=== PATIENT | female | born 2000 | race Caucasian/White ===

== ENCOUNTER 2020-02-01 01:57 | Emergency (ER) | payer OTHER, SELFPAY ==
[2020-02-01 01:59] VITALS: BP 142/88; PULSE 121; RESP 16; TEMP 37.6; O2SAT 98; BMI 24.7
--- NOTE | 2020-02-01 02:18 | XR_ITS ---
PROCEDURE: XR ANKLE LT MIN 3V CLINICAL INDICATION: pt tripped and fell. LT ankle pain COMPARISON: No exams were available for comparison FINDINGS: No fracture, dislocation, lytic change, or blastic change evident. No significant degenerative change IMPRESSION: No acute findings. Dictated by: Kiko Martínez MD 02/01/2020 05:35 Electronically signed by Kiko Martínez MD in [place] 02/01/2020 05:35
--- NOTE | 2020-02-01 03:17 | HMH.EDLOEX ---
ED Disposition Clinical Impression: Ankle sprain and strain Disposition: Home, Self-Care Condition on Discharge: Fair Instructions: Sprain Additional Instructions: X rays were reviewed and show no acute findings. You could have a sprain not visible in X rays Plan is to send patient home after providing an marie bandage. Advising rest ice marie bandage and elevation. Please follow up as needed Prescriptions: Diclofenac Sodium [Voltaren 100gm Topical Gel] 1 applicatio TP Q4-6H PRN #100 gm PRN Reason: Moderate Pain Transmission Status: Pending to [id number] Referrals: Suki Morrell MD [Primary Care Provider] - Forms: Work/School Release Time of Disposition: 03:24 - Critical Care Critical Care Time: No Attestation: On 02/01/20, the high probability of a clinically significant, sudden or life threatening deterioration of the following system(s) required my full and direct attention, intervention and personal management. The time I documented below is in addition to time spent performing reported procedures but includes the following listed in this critical care notation. Medical Decision Making - Medical Records Medical records reviewed: Yes: I reviewed the patient's medical records. MR Comment: pt stated she tripped over her dog and fell down her stairs and twisted her left ankle. pt rates her pain at a 3 at this time. pt denies any other pain or discomfort at this time. X rays were reviewed and show no acute findings. Plan is to send patient home after providing an marie bandage. Advising rest ice marie bandage and elevation. Will keep her off work today and tomorrow - Surinder Inquiry Pt receiving controlled substance: No Vital Signs: 02/01/20 01:59 Temperature 99.6 F Temperature Source Oral Pulse Rate [Left Radial] 121 H Respiratory Rate 16 Blood Pressure [Right Arm] 142/88 H Blood Pressure Mean [Right Arm] 106 Blood Pressure Source [Right Arm] Automatic Cuff Blood Pressure Position [Right Arm] Sitting 02 Sat by Pulse Oximetry 98 Oxygen Delivery Method Room Air Orders (Tests/Meds): ORDERS Category Date Time Status Ankle XR - Left minimum 3 Views [XR ankle LT min 3V] Exams 02/01/20 02:18 Ordered Stat Lower Extremity Injury HPI - General Chief Complaint: Extremity Injury, Lower Stated Complaint: AO 02/01/20 00:30 left ankle injury Time Seen by Provider: 02/01/20 03:07 Mode of Arrival: Ambulatory Source of Information: Patient Limitations: No Limitations Description of Symptoms (Recalled from ER Triage Doc. by RN): pt stated she tripped over her dog and fell down her stairs and twisted her left ankle. pt rates her pain at a 3 at this time. pt denies any other pain or discomfort at this time. - History of Present Illness HPI Narrative: pt stated she tripped over her dog and fell down her stairs and twisted her left ankle. pt rates her pain at a 3 at this time. pt denies any other pain or discomfort at this time MD complaint: ankle injury Onset (ago): hour(s) Injury: Left: ankle Type of Injury: unknown Place: home Severity: mild Severity scale (1-10): 3 Exacerbating factors: movement Associated symptoms: swelling Other symptoms: none Treatments prior to arrival: cold therapy - Related Data Previous Rx's Medication Instructions Recorded levonorgestrel-ethinyl estradiol 1 tab PO DAILY #28 tab 09/21/19 0.1 mg-20 mcg tablet Diclofenac Sodium [Voltaren 100gm 1 applicatio TP Q4-6H PRN #100 gm 02/01/20 Topical Gel] Allergies Allergy/AdvReac Type Severity Reaction Status Date / Time venom-honey bee Allergy Intermediate Verified 12/22/19 10:14 [BEE VENOM (HONEY BEE)] venom-wasp [WASP VENOM] Allergy Intermediate Verified 12/22/19 10:14 [facility] History - Hepatitis A Screen Drug use history?: No High risk sexual behaviors?: No History of sexually transmitted infection?: No Currently employed?: No Childcare worker?: No Do you have indoor plumbing?: Ye
--- NOTE | 2020-02-01 03:18 | PC.NURSE ---
left ankle CAT wrapped, pt educated on vascular assessment and adjusting CAT as needed for edema.
[2020-02-01 03:27] VITALS: BP 137/76; PULSE 64; RESP 16; TEMP 37.3; O2SAT 96
[2020-02-01 03:34] VITALS: BP 126/72; PULSE 66; RESP 16; TEMP 37.3; O2SAT 99
== END 2020-02-01 03:31 | disposition home or self-care (01) ==
PROVIDERS: Emergency Provider Emergency Medicine; PCP Family Medicine
DX: S93.402A Sprain of unspecified ligament of left ankle, initial encounter (principal); W10.9XXA Fall (on) (from) unspecified stairs and steps, initial encounter; Y92.019 Unspecified place in single-family (private) house as the place of occurrence of the external cause
CPT/HCPCS: 73610; 99282

== ENCOUNTER → 2022-04-15 10:44 | Outpatient (CLI) | payer OTHER, SELFPAY ==
[2022-04-15 13:01] LABS: HCG,Quantitative 13 mIU/ml (0-5.42)
== END ==
PROVIDERS: PCP Family Medicine; Visit Provider Nurse Practitioner Obstetrics & Gynecology
DX: N92.6 Irregular menstruation, unspecified (principal)
CPT/HCPCS: 36415; 84702

== ENCOUNTER → 2022-04-24 10:21 | Outpatient (CLI) | payer OTHER, SELFPAY ==
[2022-04-24 12:07] LABS: HCG,Quantitative 406 mIU/ml (0-5.42)
== END ==
PROVIDERS: PCP Family Medicine; Visit Provider Nurse Practitioner Obstetrics & Gynecology
DX: N92.6 Irregular menstruation, unspecified (principal)
CPT/HCPCS: 36415; 84702

== ENCOUNTER → 2022-04-28 07:30 | Outpatient (CLI) | payer OTHER, SELFPAY ==
[2022-04-28 11:57] LABS: HCG,Quantitative 1450 mIU/ml (0-5.42)
== END ==
PROVIDERS: PCP Family Medicine; Visit Provider Nurse Practitioner Obstetrics & Gynecology
DX: Z34.90 Encounter for supervision of normal pregnancy, unspecified, unspecified trimester (principal)
CPT/HCPCS: 36415; 84702

== ENCOUNTER → 2022-05-13 14:29 | Outpatient (CLI) | payer OTHER, SELFPAY ==
[2022-05-13 15:10] LABS: Basophils % 0.3 % (0.1-2.0); Eosinophils % 0.3 % (0.1-12.0); Hemoglobin 13.6 g/dL (12.2-16.2); Lymphocytes % 9.4 % (10-50); Mean Corpuscular HGB Conc 33.1 g/dL (31.8-35.4); Mean Corpuscular Hemoglobin 30.8 pg (27.0-31.2); Mean Corpuscular Volume 93.3 fl (81-99); Mean Platelet Volume 7.2 fl (7.4-10.4); Monocytes # 0.4 K/mm3 (0.1-1.0); Monocytes % 3.4 % (1.7-9.3); Neutrophils # 9.6 K/mm3 (1.8-7.8); Neutrophils % 86.6 % (37.0-80.0); Platelet Count 339 K/mm3 (142-424); Red Blood Count 4.39 M/mm3 (4.20-5.40); Red Cell Distribution Width 13.4 % (11.5-17.5)
[2022-05-13 15:13] LABS: MANUAL DIFFERENTIAL MANUAL DIFFERENTIAL (MANUAL DIFF)
[2022-05-13 15:53] LABS: Lymphocytes % 9 % (10-50); Monocytes % 3 % (2-9); Neutrophils % 88 % (42-76); Platelet Estimate Normal; RBC Morphology Normal; Total Cells Counted 100
[2022-05-13 15:55] LABS: HCG Qualitative, Serum Positive (Negative)
[2022-05-14 11:39] LABS: HCG,Quantitative 16901 mIU/ml (0-5.42)
[2022-05-15 09:36] LABS: HIV Screen 4th Generation wRfx Non Reactive (Non Reactive); Hepatitis B Surface Antigen Negative (Negative); Hepatitis C Antibody <0.1 s/co ratio (0.0-0.9); Rubella Antibodies, IgG 3.55 index (Immune >0.99)
[2022-05-15 11:57] LABS: Rapid Plasma Reagin Ab Titer Non Reactive (NonRea<1:1)
== END ==
PROVIDERS: PCP Family Medicine; Visit Provider Nurse Practitioner Obstetrics & Gynecology
DX: Z34.90 Encounter for supervision of normal pregnancy, unspecified, unspecified trimester (principal)
CPT/HCPCS: 36415; 84702; 84703; 85007; 85025; 86592; 86703; 86762; 86850; 87340; 87380; G0432

== ENCOUNTER → 2022-05-16 07:32 | Outpatient (CLI) | payer OTHER, SELFPAY ==
[2022-05-16 09:19] LABS: HCG,Quantitative 16010 mIU/ml (0-5.42)
== END ==
PROVIDERS: PCP Family Medicine; Visit Provider Nurse Practitioner Obstetrics & Gynecology
DX: Z34.90 Encounter for supervision of normal pregnancy, unspecified, unspecified trimester (principal)
CPT/HCPCS: 36415; 84702

== ENCOUNTER → 2022-05-26 14:27 | Outpatient (CLI) | payer OTHER, SELFPAY ==
[2022-05-26 15:05] LABS: Basophils # 0.1 K/mm3 (0-0.2); Basophils % 0.7 % (0.1-2.0); Eosinophils % 0.4 % (0.1-12.0); Hematocrit 40.2 % (37.0-47.0); Hemoglobin 12.8 g/dL (12.2-16.2); Lymphocytes # 2.5 K/mm3 (0.7-4.5); Lymphocytes % 32.5 % (10-50); Mean Corpuscular HGB Conc 31.8 g/dL (31.8-35.4); Mean Corpuscular Volume 94.3 fl (81-99); Mean Platelet Volume 7.3 fl (7.4-10.4); Monocytes # 0.4 K/mm3 (0.1-1.0); Monocytes % 5.1 % (1.7-9.3); Neutrophils # 4.7 K/mm3 (1.8-7.8); Neutrophils % 61.4 % (37.0-80.0); Platelet Count 379 K/mm3 (142-424); Red Blood Count 4.26 M/mm3 (4.20-5.40); Red Cell Distribution Width 13.2 % (11.5-17.5); White Blood Count 7.6 K/mm3 (4.8-10.8)
[2022-05-26 15:36] LABS: Chloride 104 mmol/L (98-107); Potassium 3.7 mmoL/L (3.5-5.1); Sodium 139 mmol/L (136-145)
[2022-05-26 15:39] LABS: Alanine Aminotransferase 17 U/L (12-78); Albumin Level 4.2 g/dl (3.5-5.0); Albumin/Globulin Ratio 1.6 (1.1-1.8); Alkaline Phosphatase 66 U/L (38-126); Anion Gap 14.7 mEq/L (5-15); Aspartate Amino Transferase 22 U/L (14-36); Bilirubin,Total 0.2 mg/dl (0.2-1.3); Blood Urea Nitrogen 9 mg/dl (7-17); Carbon Dioxide 24 mmol/L (22.0-30.0); Estimated Glomerular Filt Rate 125 ml/min (>60); GFR (African American) 151 ML/MIN (>60); Globulin 2.6 g/dL (1.3-3.2); Total Protein,Serum 6.8 g/dl (6.3-8.2)
[2022-05-26 15:40] LABS: Calcium 9.5 mg/dl (8.4-10.2); Glucose 91 mg/dl (74-100)
== END ==
PROVIDERS: PCP Family Medicine; Visit Provider Nurse Practitioner Obstetrics & Gynecology
DX: O03.4 Incomplete spontaneous abortion without complication (principal)
CPT/HCPCS: 36415; 80053; 85025

== ENCOUNTER 2022-05-27 11:54 | Day surgery (SDC) | payer OTHER, SELFPAY ==
[2022-05-27 12:06] VITALS: BP 144/79; PULSE 94; RESP 18; TEMP 36.8; O2SAT 100; BMI 30.4
--- NOTE | 2022-05-27 12:53 | EXP.ANES.CKL ---
PFSH PFS Medical History (Updated 05/27/22 @ 12:04 by Ada Hart RN) No significant past medical history Surgical History (Updated 05/27/22 @ 12:04 by Ada Hart RN) No significant past surgical history Family History (Updated 05/27/22 @ 12:04 by Ada Hart RN) Other Family history of cancer Family history of diabetes mellitus type II Family history of hypertension Family history of myocardial infarction Family history of stroke Social History (Updated 05/27/22 @ 12:05 by Ada Hart RN) Smoking Status: Never smoker alcohol intake: never substance use type: denies use current occupational status: employed Travel in the last 8 weeks: None household members: family housing: house lives independently: Yes marital status: do you feel safe at home: Yes victim of physical abuse: No victim of emotional abuse: No victim of sexual abuse: No would you like helpful sources: No [facility] Anesthesia Checklist Patient Identification Patient Identification: Arm Band Structural Data Admitted From: Home Planned Operative Procedure/s: D&C with Mariaa Suction Consent for Planned Operative Procedure(s) Verified: Yes Verified Documents: Surgical Consent and History and Physical NPO Status Verified Time NPO: 00:00 Additional verifications Anesthesia Reactions: No Hx Blood Transfusions: No Blood Transfusion Reaction: No Airway Assessment C-Spine Mobility Assessed: Yes TMJ Mobility Assessed: Yes Dentition: Good Dentition Neurological Assessment Level of Consciousness: Awake and Alert Anesthesia Plan Anesthesia Risk discussed: Yes Anesthesia Plan: Verified ASA Class: II Anesthesia Type: General
--- NOTE | 2022-05-27 14:58 | P.OP_ITS ---
Date of procedure: 05/27/22 Pre-op Diagnosis:: Missed Post-op Diagnosis:: Missed Procedure performed:: Dilation and evacuation with Avery suction Surgeon:: Carl Braswell MD CHUCKING AND BORING MACHINE OPERATOR:: Nabil Washburn Anesthesia: MAC Estimated blood loss (mL): 150 Clinical Note:: She is a 22-year-old 1 para 0 at 10 weeks gestational age. She was seen a week or so ago with a suspected miscarriage. There was no heart rate activity. A repeat ultrasound showed that there was no heart rate activity. As result of that she was offered dilation and evacuation. The risk and benefits of surgery were discussed with the patient. Operative findings:: She has an anteverted bulky uterus. There was copious tissue within the uterine cavity. Operative note:: She was taken the operating room where esthesia was found be adequate. She was prepped a partial vaginal lithotomy position. Weighted speculum was placed in the vagina and the anterior lip of the cervix was grasped with a tenaculum. I then used Hunter dilators to dilate the cervix up to approximately 10 mm. Then using a 10 mm curved Dave suction curette I evacuated the uterine contents this was followed by gentle curettage. During the dilation of the cervix the tenaculum tore off the cervix and at the end of the procedure I placed a single 3-0 Vicryl Rapide suture on the cervix. She tolerated procedure well and was taken the recovery room in excellent condition. All sponge, instrument and needle counts counts were correct. The estimated blood loss was approximately 150 cc. Condition: stable Disposition: PACU Specimens:: Retained products of conception Complications:: None
[2022-05-27 15:00] VITALS: BP 142/82; PULSE 76; RESP 17; TEMP 36.4; O2SAT 98
[2022-05-27 15:10] VITALS: BP 139/97; PULSE 79; RESP 16; O2SAT 98
[2022-05-27 15:20] VITALS: BP 127/92; PULSE 84; RESP 17; O2SAT 98
[2022-05-27 15:30] VITALS: BP 119/75; PULSE 72; RESP 18; O2SAT 99
--- NOTE | 2022-05-28 08:02 | P.PNANES_ITS ---
[facility] Anesthesia Record Part II Anesthesia Record Part II Discharge Time: 15:20 Destination: Surgical Day Care (OP Surgery) PACU nurse assessment reviewed?: Yes Patient Condition:: Good Anesthesia Complications:: None Swallowing reflex intact?: Yes Cyanosis?: No Blood Pressure: 127/92 Pulse Rate: 84 Temperature: 97 F Mental Status: Alert & Oriented Pain level:: 5 Nausea and/or vomitting:: None Intake, IV Amount: 0
[2022-05-28 08:03] VITALS: BP 127/92; PULSE 84; TEMP 36.1
== END 2022-05-27 15:35 | disposition home or self-care (01) ==
PROVIDERS: PCP Family Medicine; Visit Provider Nurse Practitioner Obstetrics & Gynecology
PROC: (CPT 59820; principal; 2022-05-27 13:30)
DX: O03.4 Incomplete spontaneous abortion without complication (principal); Z79.899 Other long term (current) drug therapy
CPT/HCPCS: 59820; J2405

== ENCOUNTER → 2022-07-29 07:22 | Outpatient (CLI) | payer OTHER, SELFPAY ==
[2022-07-29 10:35] LABS: HCG,Quantitative 63 mIU/ml (0-5.42)
[2022-07-30 10:12] LABS: Progesterone 17.9 ng/mL (.)
== END ==
PROVIDERS: PCP Family Medicine; Visit Provider Nurse Practitioner Obstetrics & Gynecology
DX: N92.6 Irregular menstruation, unspecified (principal); Z32.00 Encounter for pregnancy test, result unknown
CPT/HCPCS: 36415; 84144; 84702

== ENCOUNTER → 2022-08-05 07:50 | Outpatient (CLI) | payer OTHER, SELFPAY ==
[2022-08-05 09:07] LABS: HCG,Quantitative 1190 mIU/ml (0-5.42)
== END ==
PROVIDERS: PCP Family Medicine; Visit Provider Nurse Practitioner Obstetrics & Gynecology
DX: Z34.90 Encounter for supervision of normal pregnancy, unspecified, unspecified trimester (principal); Z3A.01 Less than 8 weeks gestation of pregnancy
CPT/HCPCS: 36415; 84702

== ENCOUNTER → 2022-08-07 07:47 | Outpatient (CLI) | payer OTHER, SELFPAY ==
[2022-08-07 08:59] LABS: HCG,Quantitative 2442 mIU/ml (0-5.42)
== END ==
PROVIDERS: PCP Family Medicine; Visit Provider Nurse Practitioner Obstetrics & Gynecology
DX: Z34.90 Encounter for supervision of normal pregnancy, unspecified, unspecified trimester (principal); Z3A.01 Less than 8 weeks gestation of pregnancy
CPT/HCPCS: 36415; 84702

== ENCOUNTER → 2022-08-19 14:29 | Outpatient (CLI) | payer OTHER, SELFPAY ==
[2022-08-19 15:16] LABS: Basophils # 0.1 K/mm3 (0-0.2); Basophils % 0.8 % (0.1-2.0); Eosinophils % 0.4 % (0.1-12.0); Hematocrit 40.6 % (37.0-47.0); Hemoglobin 13.7 g/dL (12.2-16.2); Lymphocytes # 2.8 K/mm3 (0.7-4.5); Lymphocytes % 25.3 % (10-50); Mean Corpuscular HGB Conc 33.7 g/dL (31.8-35.4); Mean Corpuscular Hemoglobin 30.8 pg (27.0-31.2); Mean Corpuscular Volume 91.4 fl (81-99); Mean Platelet Volume 7.1 fl (7.4-10.4); Monocytes # 0.4 K/mm3 (0.1-1.0); Monocytes % 4.1 % (1.7-9.3); Neutrophils # 7.6 K/mm3 (1.8-7.8); Neutrophils % 69.5 % (37.0-80.0); Platelet Count 389 K/mm3 (142-424); Red Blood Count 4.44 M/mm3 (4.20-5.40); Red Cell Distribution Width 13.3 % (11.5-17.5)
[2022-08-21 12:02] LABS: HIV Screen 4th Generation wRfx Non Reactive (Non Reactive); Rubella Antibodies, IgG 2.79 index (Immune >0.99)
[2022-08-21 12:11] LABS: Rapid Plasma Reagin Ab Titer Non Reactive (NonRea<1:1)
[2022-08-23 05:30] LABS: Hepatitis B Surface Antigen Negative; Hepatitis C Antibody <0.1
== END ==
PROVIDERS: PCP Family Medicine; Visit Provider Nurse Practitioner Obstetrics & Gynecology
DX: Z34.90 Encounter for supervision of normal pregnancy, unspecified, unspecified trimester (principal)
CPT/HCPCS: 36415; 85025; 86593; 86703; 86762; 86850; 87086; 87340; 87380; G0432

== ENCOUNTER → 2022-11-19 12:43 | Outpatient (CLI) | payer OTHER, SELFPAY ==
--- NOTE | 2022-11-19 12:43 | US_ITS ---
FINAL REPORT CLINICAL HISTORY: 20 week anatomt scan please use anatomy template FINDINGS: There is a single live intrauterine gestation. Presentation is cephalic. The cervix is closed and measures 4.0. Placenta is posterior grade 1. movement is noted. The heart is difficult to evaluate due to fetus position. There are no gross anomalies. MEASUREMENTS: ULTRASOUND AGE: 19 weeks 4 days. GESTATION AGE: 20 weeks 2 days. ESTIMATED WEIGHT: 305 g GROWTH PERCENTILE: 16 % BPD: 4.4 a corresponding to 19 weeks 4 days. OFD: 5.75 corresponding to 20 weeks 0 days. HC: 16.19 cm corresponding to 19 weeks 0 days. AC: 14.55 cm corresponding to 20 weeks 0 days. FL: 3.09 cm corresponding to 19 weeks 5 days. CEREBELLUM: 1.89 cm corresponding to 19 weeks 4 days. HUMERUS: 2.98 cm corresponding to 19 weeks 6 days. HC/AC: 1.11 CI: 78% FL/BPD: 69% FL/AC: 21% IMPRESSION: Single living IUP with an ultrasound age of 19 weeks 4 days. Reviewed, Interpreted and Dictated by Nicko Srivastava MD Transcribed by Ariela Sanders Authenticated and [facility]
== END ==
PROVIDERS: PCP Family Medicine; Visit Provider Nurse Practitioner Obstetrics & Gynecology
DX: Z34.90 Encounter for supervision of normal pregnancy, unspecified, unspecified trimester (principal); Z3A.20 20 weeks gestation of pregnancy
CPT/HCPCS: 76811

== ENCOUNTER → 2023-01-01 07:25 | Outpatient (CLI) | payer OTHER, SELFPAY ==
[2023-01-01 07:44] LABS: Basophils # 0.1 K/mm3 (0-0.2); Basophils % 0.4 % (0.1-2.0); Eosinophils # 0.2 K/mm3 (0.0-0.4); Eosinophils % 1.3 % (0.1-12.0); Hematocrit 38.2 % (37.0-47.0); Hemoglobin 12.6 g/dL (12.2-16.2); Lymphocytes # 3.7 K/mm3 (0.7-4.5); Mean Corpuscular HGB Conc 32.9 g/dL (31.8-35.4); Mean Corpuscular Hemoglobin 31.5 pg (27.0-31.2); Mean Corpuscular Volume 95.9 fl (81-99); Mean Platelet Volume 7.5 fl (7.4-10.4); Monocytes # 0.5 K/mm3 (0.1-1.0); Monocytes % 3.6 % (1.7-9.3); Neutrophils # 10.3 K/mm3 (1.8-7.8); Neutrophils % 69.7 % (37.0-80.0); Platelet Count 281 K/mm3 (142-424); Red Blood Count 3.98 M/mm3 (4.20-5.40); Red Cell Distribution Width 14.4 % (11.5-17.5); White Blood Count 14.7 K/mm3 (4.8-10.8)
[2023-01-01 08:25] LABS: Glucose,Fasting 70 mg/dl (74-100)
[2023-01-01 10:15] LABS: Glucose 1 Hour 104 mg/dL (74-100)
== END ==
PROVIDERS: PCP Family Medicine; Visit Provider Nurse Practitioner Obstetrics & Gynecology
DX: Z34.92 Encounter for supervision of normal pregnancy, unspecified, second trimester (principal)
CPT/HCPCS: 36415; 82951; 85025

== ENCOUNTER → 2023-03-11 16:54 | Outpatient (CLI) | payer OTHER, SELFPAY | PROVIDERS: Visit Provider Nurse Practitioner Obstetrics & Gynecology | DX: Z34.93 Encounter for supervision of normal pregnancy, unspecified, third trimester (principal); Z3A.36 36 weeks gestation of pregnancy | CPT/HCPCS: 86403 ==

== ENCOUNTER → 2023-03-18 10:15 | Outpatient (CLI) | payer OTHER, SELFPAY ==
--- NOTE | 2023-03-18 10:15 | US_ITS ---
PROCEDURE: US OB BIOPHYSICAL PROFILE CLINICAL INDICATION: sga/ growth/ position COMPARISON: Anatomy scan. November 19, 2022. FINDINGS: Transabdominal sonographic images of the uterus were obtained. From her established due date she is 37weeks 2days. The following parameters are obtained: Viable fetus in the cephalic presentation with a posterior placenta grade 2. Average ultrasound age is 35weeks 3days. Estimated due date by ultrasound is 04/19/2023. Estimated weight is 5lb 14.94oz. Cervix measures 2.7 cm. 16 percentile heart rate: 138bpm bpm. BPD: 35 weeks 1 day HC: 35 weeks 5 days AC: 36 weeks 2 days FL: 34 weeks 1 day HC/AC: 0.98 Cephalic index: FL/BPD: 0.76 FL/AC: 0.2 Amniotic fluid index: 15.74cm Qualitative AFV: 2 breathing movements: 2 Gross body movements: 2 Tone: 2 Biophysical profile score: 8 No obvious anomalies evident.Kidneys, stomach, bladder, three-vessel cord appear normal. IMPRESSION: 1. Fetus in the cephalic presentation with a posterior placenta grade 2. 2. The fluid is within normal limits with an amniotic fluid index of 15.7 cm. 3. Fetus is active and there is good breathing movement. Biophysical profile 8/8. 4. There has been good interval growth with the fetus currently 16 percentile. Abdominal circumference 1 week behind. Dictated by: Carl Braswell MD 03/18/2023 13:33 Carl Braswell MD in [place] 03/18/2023 13:33
== END ==
PROVIDERS: Visit Provider Nurse Practitioner Obstetrics & Gynecology
DX: O36.5930 Maternal care for other known or suspected poor fetal growth, third trimester, not applicable or unspecified (principal); Z3A.37 37 weeks gestation of pregnancy
CPT/HCPCS: 76816; 76819

== ENCOUNTER 2023-04-07 04:53 | Inpatient (IN) | payer OTHER, SELFPAY ==
[2023-04-07 05:05] VITALS: BMI 34.7
[2023-04-07 05:46] LABS: Microscopic, Urine URINE MICROSCOPIC (MICROSCOPIC)
[2023-04-07 05:49] LABS: Bilirubin,Urine Negative (Negative); Blood, Urine Negative (Negative); Color,Urine YELLOW (Yellow); Glucose,Urine (UA) Negative (Negative); Ketones,Urine 1+ (Negative); Leukocyte Esterase,Urine 2+ (Negative); Nitrate,Urine Negative (Negative); Protein,Urine Negative (Negative); Urobilinogen,Urine 0.2 EU/dl (0.2)
[2023-04-07 05:49] LABS: Basophils # 0.1 K/mm3 (0-0.2); Basophils % 0.6 % (0.1-2.0); Eosinophils # 0.1 K/mm3 (0.0-0.4); Eosinophils % 0.7 % (0.1-12.0); Hematocrit 48.1 % (37.0-47.0); Hemoglobin 15.2 g/dL (12.2-16.2); Lymphocytes # 3.5 K/mm3 (0.7-4.5); Lymphocytes % 29.6 % (10-50); Mean Corpuscular HGB Conc 31.6 g/dL (31.8-35.4); Mean Corpuscular Hemoglobin 31.3 pg (27.0-31.2); Mean Corpuscular Volume 98.8 fl (81-99); Mean Platelet Volume 8.5 fl (7.4-10.4); Monocytes # 0.5 K/mm3 (0.1-1.0); Monocytes % 4.3 % (1.7-9.3); Neutrophils # 7.6 K/mm3 (1.8-7.8); Neutrophils % 64.7 % (37.0-80.0); Platelet Count 284 K/mm3 (142-424); Red Blood Count 4.87 M/mm3 (4.20-5.40); White Blood Count 11.7 K/mm3 (4.8-10.8)
[2023-04-07 05:57] LABS: Appearance,Urine Slightly Cloudy (Clear)
[2023-04-07 06:34] LABS: Amorphous Sediment,Urine 1+ /lpf; Squamous Epithelial Cell,Urine TNTC #/hpf (0-5); WBC,Urine 20-50 #/hpf (0-3)
[2023-04-07 06:38] VITALS: BMI 34.7
[2023-04-07 08:04] LABS: Benzodiazepines Screen,Urine Negative ng/ml (<200)
[2023-04-07 08:05] LABS: Amphetamine/Metha Screen,Urine Negative ng/ml (<1000)
[2023-04-07 08:06] LABS: Barbiturates Screen,Urine Negative ng/ml (<200); Methadone Screen,Urine Negative ng/ml (<300)
[2023-04-07 08:07] LABS: Cannabinoid Screen,Urine Negative ng/ml (<50); Cocaine Screen,Urine Negative ng/ml (<300)
[2023-04-07 08:08] LABS: Opiate Screen,Urine Negative ng/ml (<300)
[2023-04-07 08:09] LABS: Phencyclidine Screen,Urine Negative ng/ml (<25)
--- NOTE | 2023-04-07 09:15 | EXP.HP ---
History of Present Illness *Admission Date: 04/07/23 *Reason for visit:: induction *History of present illness: Archana Ortega is a 22yo at 40 weeks and 1 day gestation presenting this morning for an induction. MARLA of 04/06/2023 is based on last menstrual period and confirmed by pressurized ultrasound. She received care with Dr. Braswell and it was uncomplicated. There was a cardiac arrhythmia at 31weeks which was evaluated at [facility] and was benign. labs reviewed: A+, antibody negative, RPR NR, hepatitis B negative, hepatitis C negative, HIV negative, rubella immune Pap smear: NILM, no transformation zone visualized. 1 hour GTT: 104 GBS negative UDS: Negative Ultrasound on 03/18/23 for size growth and position at 37 weeks and 2 days gestation: Cephalic, posterior grade 2 placenta, EFW 5 pounds 14 ounces, 16 percentile, abdominal circumference is 1 week behind, LANA: 15 cm, BPP: 8 out of 8 PFSH PFSH Disclaimer: The information contained in this section may have been updated after the patient was seen, as this information can be updated by other users. Medical History Nausea/vomiting in Surgical History H/O dilation and curettage Family History Other Family history of cancer Family history of diabetes mellitus type II Family history of hypertension Family history of myocardial infarction Family history of stroke Social History Smoking Status: Never smoker alcohol intake: never substance use type: denies use current occupational status: employed Travel in the last 8 weeks: None household members: family housing: house lives independently: Yes marital status: do you feel safe at home: Yes victim of physical abuse: No victim of emotional abuse: No victim of sexual abuse: No would you like helpful sources: No Meds Home Medications and Allergies Home Medications Medication Instructions Recorded Confirmed Type vits 75-iron 28 mg-folic 28 pkg PO DAILY Supplement 05/13/22 04/07/23 History acid 800 mcg-omega-3 oral combo pack (One A Day Women's DHA) promethazine 12.5 mg tablet 12.5 mg PO Q6H PRN nausea and 08/19/22 04/07/23 Rx vomiting #20 tabs ferrous sulfate 325 mg (65 mg 325 mg PO DAILY iron supplement 11/11/22 04/07/23 History iron) tablet doxylamine 10 mg-pyridoxine (vit 1 tab PO TID Nausea And Vomiting 04/07/23 04/07/23 History B6) 10 mg tablet,delayed release (Diclegis) folic acid 400 mcg tablet 400 mcg PO DAILY Supplement 04/07/23 04/07/23 History New Prescriptions to Start Prescriptions: Allergies Allergy/AdvReac Type Severity Reaction Status Date / Time venom-honey bee Allergy Intermediate Verified 04/01/23 14:22 [BEE VENOM (HONEY BEE)] venom-wasp [WASP VENOM] Allergy Intermediate Verified 04/01/23 14:22 Exam Data for Last 24 hours Vital signs and Labs for Last 24 Hours: Laboratory Results - last 24 hr 04/07/23 05:00: Urine Color Yellow, Urine Appearance Slightly cloudy, Urine pH 7.0, Ur Specific [place] 1.020, Urine Protein Negative, Urine Glucose (UA) Negative, Urine Ketones 1+, Urine Blood Negative, Urine Nitrate Negative, Urine Bilirubin Negative, Urine Urobilinogen 0.2, Ur Leukocyte Esterase 2+ A, Urine RBC 3-5, Urine WBC 20-50, Ur Squamous Epith Cells Tntc, Amorphous Sediment 1+, Urine Bacteria None, Urine Opiates Screen Negative, Urine Methadone Screen Negative, Ur Barbituates Screen Negative, Ur Phencyclidine Scrn Negative, Ur Amphetamines Screen Negative, U Benzodiazepines Scrn Negative, Urine Cocaine Screen Negative, U Marijuana (THC) Screen Negative 04/07/23 05:20: WBC 11.7 H, RBC 4.87, Hgb 15.2, Hct 48.1 H, MCV 98.8, MCH 31.3 H, MCHC 31.6 L, RDW 14.0, Plt Count
--- NOTE | 2023-04-07 14:26 | EXP.ANES.CKL ---
[facility] Disclaimer: The information contained in this section may have been updated after the patient was seen, as this information can be updated by other users. Medical History Nausea/vomiting in Surgical History H/O dilation and curettage Family History Other Family history of cancer Family history of diabetes mellitus type II Family history of hypertension Family history of myocardial infarction Family history of stroke Social History Smoking Status: Never smoker alcohol intake: never substance use type: denies use current occupational status: employed Travel in the last 8 weeks: None household members: family housing: house lives independently: Yes marital status: do you feel safe at home: Yes victim of physical abuse: No victim of emotional abuse: No victim of sexual abuse: No would you like helpful sources: No [facility] Anesthesia Checklist Patient Identification Patient Identification: Arm Band Structural Data Admitted From: Inpatient Planned Operative Procedure/s: Labor Epidural Consent for Planned Operative Procedure(s) Verified: Yes Verified Documents: Surgical Consent and History and Physical NPO Status Verified Time NPO: 00:00 Additional verifications Anesthesia Reactions: No Hx Blood Transfusions: No Blood Transfusion Reaction: No Airway Assessment Dentition: Good Dentition Neurological Assessment Level of Consciousness: Awake and Alert Anesthesia Plan Anesthesia Risk discussed: Yes Anesthesia Plan: Verified ASA Class: II Anesthesia Type: Epidural
--- NOTE | 2023-04-07 21:37 | EXP.DN ---
Delivery Note Delivery Date:: 04/07/23 Delivery Time:: 20:22 Anesthesia Type: Epidural Was labor medically induced?: Yes Induction method: per pitocin protocol Gestational age (weeks): 40 delivered prior to 39 weeks?: No Infant Gender: Female at 1 minute: 4 at 5 minutes: 9 LAC or MLE?: LAC Delivery Procedure:: Preoperative diagnosis: 1. at 40 completed this weeks gestation, vertex 2. Rh positive 3. GBS negative Postoperative diagnosis: 1. at 39 completed this weeks gestation, vertex 2. Rh positive 3. GBS negative EBL: 600mL Specimen: 1. Cord blood Medications: 1. 1g IV TXA 2. 2g IV Ancef Findings: 1. Liveborn viable female : Shereen Harrell. Apgars 4/9 at 1 and 5 minutes respectively. Weight pending at time of dictation 2. 3c midline perineal laceration Complications: None Archana Ortega is a 22yo at 40 weeks and 1 day gestation presenting this morning for an induction. She received care with Dr. Braswell and it was uncomplicated. Induction was initiated with pitocin. She received an epidural and following that had AROM revealing clear fluid. During pushing the patient had variable decelerations with contractions. They recovered to baseline with good variability in between contractions. The infant was noted to be in AUGUST position. With effective maternal pushing there was a nonoperative spontaneous vaginal delivery at 2021. There was a nuchal cord x1 that was delivered through. The anterior right shoulder delivered, with a small amount of resistance but was delivered without any extra maneuvers. The body and lower extremities delivered without difficulty. The infant was bulb suctioned and was crying immediately following delivery, pulse was checked and noted to be 180. The infant was placed on the maternal abdomen and greater than one minute was appreciated for delayed cord clamping. The umbilical cord was doubly clamped and cut. Cord blood was collected and sent for routine testing. The placenta delivered with cord traction and suprapubic contertraction at 2026. Pitocin was started and the placenta and cord were inspected. The placenta was noted to be intact, with a 3 vessel cord. The uterus was firm. The perineum, vaginal stone, cervix, and paraurethral area were inspected thoroughly. There was a third-degree midline perineal laceration. Epidural was adequate for repair. A rectal exam was completed and confirmed the skin was torn surrounding the rectum but the rectal mucosa was intact. I called my partner in for assistance with the repair. The internal anal sphincter was reapproximated with 2-0 Vicryl. The external anal sphincter capsule was grasped with an Janee and the muscle capsule was reapproximated with x4 with interrupted 2-0 Vicryl suture. The apex of the laceration was inspected and noted to be just in skin not through the anal mucosa. The skin surrounding the rectum was reapproximated with 3-0 Vicryl x2 simple interrupted sutures. A rectal exam was completed and there is no sutures noted in the rectal mucosa and the rectum was noted to be intact. At this point the repair was a second-degree laceration and was repaired in the normal fashion using 2-0 and 3-0 Vicryl suture. The laceration was hemostatic. Final rectal exam was completed and confirmed again no sutures within intact mucosa. The cervix and vaginal stone were inspected and noted to be hemostatic. This concluded the delivery. The patient was counseled regarding the events of the delivery and repair. The patient tolerated the delivery well. All counts were correct by nursing. Mother and infant were bonding and doing well upon my leaving the delivery room. Laceration:: vaginal Placental Delivery Description: Spontaneous
[2023-04-08 06:04] LABS: Basophils % 0.2 % (0.1-2.0); Eosinophils # 0.1 K/mm3 (0.0-0.4); Eosinophils % 0.3 % (0.1-12.0); Hematocrit 37.1 % (37.0-47.0); Lymphocytes # 2.1 K/mm3 (0.7-4.5); Lymphocytes % 12.2 % (10-50); Mean Corpuscular HGB Conc 32.2 g/dL (31.8-35.4); Mean Corpuscular Hemoglobin 31.4 pg (27.0-31.2); Mean Corpuscular Volume 97.5 fl (81-99); Mean Platelet Volume 8.3 fl (7.4-10.4); Monocytes # 0.8 K/mm3 (0.1-1.0); Monocytes % 4.6 % (1.7-9.3); Neutrophils # 14.4 K/mm3 (1.8-7.8); Neutrophils % 82.7 % (37.0-80.0); Platelet Count 278 K/mm3 (142-424); Red Blood Count 3.81 M/mm3 (4.20-5.40); White Blood Count 17.4 K/mm3 (4.8-10.8)
[2023-04-08 06:06] LABS: MANUAL DIFFERENTIAL MANUAL DIFFERENTIAL (MANUAL DIFF)
[2023-04-08 06:38] LABS: Lymphocytes % 15 % (10-50); Monocytes % 6 % (2-9); Neutrophils % 76 % (42-76); Platelet Estimate Normal; RBC Morphology Normal; Total Cells Counted 100
[2023-04-08 07:49] LABS: Hemoglobin 12.1 g/dL (12.2-16.2)
[2023-04-08 15:39] VITALS: BP 138/82; PULSE 92; RESP 18; TEMP 36.7; O2SAT 98
--- NOTE | 2023-04-08 18:51 | EXP.ACUTE.PN ---
Subjective *Date: 04/08/23 *Time: 18:51 Interval history: PPD # 1 s/p with 3rd degree perineal laceration She is resting comfortably in bed. Breast feeding. Lochia is appropriate. Voiding without difficulty and passing flatus. Tolerating regular diet. Denies fever/chills, chest pain and shortness of breath. No headaches, vision changes, lightheadedness/dizziness. Ambulating well ad denice. Medical Exam Vital signs and Labs for Last 24 Hours: Vital Signs Temp Pulse Resp BP Pulse Ox O2 Del Method 04/08/23 15:39 98.0 F 92 H 18 138/82 98 Room Air Laboratory Results - last 24 hr 04/07/23 05:20: Blood Type A Positive, Antibody Screen Negative, Crossmatch (AHG) See Detail 04/08/23 04:51: WBC 17.4 H D, RBC 3.81 L, Hgb 12.1 L D, Hct 37.1, MCV 97.5, MCH 31.4 H, MCHC 32.2, RDW 14.0, Plt Count 278, MPV 8.3, Neut % (Auto) 82.7 H, Lymph % (Auto) 12.2, [place] % (Auto) 4.6, Eos % (Auto) 0.3, Baso % (Auto) 0.2, Neut # (Auto) 14.4 H, Lymph # (Auto) 2.1, [place] # (Auto) 0.8, Eos # (Auto) 0.1, Baso # (Auto) 0.0, Total Counted 100, Neutrophils % (Manual) 76, Band Neutrophils % 3.0, Lymphocytes % (Manual) 15, Monocytes % (Manual) 6, Platelet Estimate Normal, RBC Morphology Normal I & O for Labs for Last 24 Hours: Intake & Output 04/05/23 04/06/23 04/07/23 04/08/23 23:59 23:59 23:59 23:59 Output Total 600 / 600 Balance -600 / -600 Weight 184 lb Microbiology Reports for the Last 24 Hours: Microbiology 04/07/23 05:00 Urine,Clean Catch Urine Culture - Preliminary NO GROWTH AFTER 24 HOURS Head: Present atraumatic and normocephalic ENT: Present normal exam Neck: Present full ROM Respiratory: Present CTA bilaterally and normal respiratory effort Cardiac: Present Reg Rate and Rhythm GI: Present soft; Absent distention or tenderness Comments:: Uterine fundus firm and below umbilicus Rectal (female): Present deferred (female): Present deferred Extremities: Present full ROM Neuro: Present alert, awake, oriented x 3 and moves all extremities Assessment and Plan *Assessment and plan (1) 40 weeks gestation of : Status: Acute Category: Medical Code(s): Z3A.40 - 40 weeks gestation of (2) Status post vaginal delivery: Status: Acute Category: Surgical (3) Third degree perineal laceration during delivery with more than 50% tear of external anal sphincter: Status: Acute Category: Medical Code(s): O70.22 - Third degree perineal laceration during delivery, IIIb (4) Elective induction of labor planned: Status: Acute Category: Medical Plan Continue routine care Encouraged increased ambulation AM Hgb 12.1/37.1 (15.2/48.1) D/c IV Continue stool softener Plan d/c home tomorrow, PPD # 2
[2023-04-08 20:12] VITALS: BP 122/81; PULSE 81; RESP 17; TEMP 36.7; O2SAT 100
[2023-04-09 04:07] VITALS: BP 128/84; PULSE 83; RESP 17; TEMP 36.4; O2SAT 100
--- NOTE | 2023-04-09 13:51 | EXP.DC.SUM ---
General Admission date:: 04/07/23 Discharge date: 04/09/23 HPI HPI HPI: Archana Ortega is a 22yo at 40 weeks and 1 day gestation presenting this morning for an induction. MARLA of 04/06/2023 is based on last menstrual period and confirmed by pressurized ultrasound. She received care with Dr. Braswell and it was uncomplicated. There was a cardiac arrhythmia at 31weeks which was evaluated at [facility] and was benign. labs reviewed: A+, antibody negative, RPR NR, hepatitis B negative, hepatitis C negative, HIV negative, rubella immune Pap smear: NILM, no transformation zone visualized. 1 hour GTT: 104 GBS negative UDS: Negative Ultrasound on 03/18/23 for size growth and position at 37 weeks and 2 days gestation: Cephalic, posterior grade 2 placenta, EFW 5 pounds 14 ounces, 16 percentile, abdominal circumference is 1 week behind, LANA: 15 cm, BPP: 8 out of 8 Hospital Course Hospital Course Hospital Course: Archana Ortega is a G1, P1 day #2 from a normal spontaneous vaginal delivery with a third-degree laceration. She is doing very well and desires discharge home today. She is breast-feeding and has a small yeastlike rash on her nipple otherwise the is latching well and she is doing well. Her lochia is scant and she is voiding without difficulty or dysuria. She is passing gas but has not had a bowel movement yet. She is tolerating regular diet without nausea or vomiting. She denies any fevers, chills, chest pain, or shortness of breath. Denies any headaches, vision changes, lightheadedness, or dizziness. Routine discharge directions reviewed with patient in detail and she voiced understanding. All questions and concerns were addressed. She will follow-up in 1 week for a perineal laceration exam to ensure that it is healing well and at that time she will also have an appointment with the cyber security consultant for breast-feeding assistance. Exam Data for Last 24 hours Vital signs and Labs for Last 24 Hours: Temp Pulse Resp BP Pulse Ox O2 Del Method 97.6 F 83 17 128/84 100 Room Air 04/09/23 04:07 04/09/23 04:07 04/09/23 04:07 04/09/23 04:07 04/09/23 04:07 04/09/23 04:07 Laboratory Results - last 24 hr 04/07/23 05:20: Blood Type A Positive, Antibody Screen Negative, Crossmatch ([facility]) See Detail I & O for Last 24 hours: Intake & Output 04/06/23 04/07/23 04/08/23 04/09/23 23:59 23:59 23:59 23:59 Output Total 600 / 600 Balance -600 / -600 Weight 184 lb Microbiology Reports for the Last 24 Hours: Microbiology 04/07/23 05:00 Urine,Clean Catch Urine Culture - Final NO GROWTH AFTER 48 HOURS Narrative: General: patient is alert oriented in no acute distress and responds appropriately to questions. Appears to be in minimal pain. resting in bed and doing well HEENT: NCAT, EOMI, moist mucous membranes, neck supple with full ROM Cardiovascular: RRR +S1/S2, no murmurs or rubs Pulmonary: Clear to auscultation bilaterally, nonlabored breathing, symmetric chest rise Abdominal: Fundus below the umbilicus, firm, and tenderness appropriate for the period. Extremities: trace edema, no tenderness or cyanosis noted Skin: Normal turgor, intact, warm. Negative for erythema, pallor, petechia, or lesions Neurologic: Negative for sensory or motor deficit Psychiatric: Normal affect, normal thought process, good judgment and insight, no depression or anxious mood appreciated. Results Data Completed and Pending Labs on day of discharge: Labs from last 24 hours 04/07/23 05:20 Blood Type A Positive Antibody Screen Negative Crossmatch ([facility]) See Detail DS: Diagnosis Discharge Diagnosis (1) 40 weeks gestation of : Status: Acute Code(s): Z3A.40 - 40 weeks gestation of (2) Status post vaginal delivery: Status: Acute Problem details: Continue routine care Encourage
== END 2023-04-09 13:45 | disposition home or self-care (01) | DRG 768 ==
PROVIDERS: Admitting Provider Obstetrics & Gynecology; PCP Family Medicine; Visit Provider Obstetrics & Gynecology
DX: O69.81X0 Labor and delivery complicated by cord around neck, without compression, not applicable or unspecified (principal); Z37.0 Single live birth; O70.23 Third degree perineal laceration during delivery, IIIc; Z3A.40 40 weeks gestation of pregnancy
CPT/HCPCS: 59409; 59025; 80305; 81001; 85007; 85025; 86850; 87086; 94761; G0283; J0690; J2405

== ENCOUNTER 2024-11-16 18:21 | Outpatient (CLI) | payer OTHER, SELFPAY ==
[2024-11-18 22:02] LABS: QuantiFERON-TB Gold Plus Negative (Negative)
== END 2024-11-16 23:59 | disposition home or self-care (01) ==
LOC: LAB 18:23
PROVIDERS: PCP Family Medicine; Visit Provider Family Medicine
DX: Z11.1 Encounter for screening for respiratory tuberculosis (principal)
CPT/HCPCS: 86480

== ENCOUNTER 2025-05-30 13:46 | Outpatient (CLI) | payer OTHER, SELFPAY ==
--- OUTSIDE RECORDS SUMMARY | 2024-11-14 09:00 | XMS_ITS ---
Author Organization [place] Address [facility] [facility] [address] [place] [phone] Care Team Providers Care Stone Chimney Mason Name Role Phone Mary Jo Cruz Primary Care Provider Katie Dolan Unavailable [phone] Baldev Otero Unavailable [phone] Allergies Allergen (clinical drug ingredient) Drug/Non Drug Allergy documented on EMR Reaction Allergy Type Onset Date Status Bee Sting Unknown Allergy Active REASON FOR VISIT gen cpx Medications Medication SIG (Take, Route, Fr equency, Duration) Notes Start Date End Date Status Nexplanon 68 MG as directed Subcutaneous Active EPINEPHrine 0.3 MG/0.3ML as directed int ramuscularly once 02/04/2022 Active Vital Signs Weight 187.8 lbs 11/14/2024 Blood pressure systolic 128 mm Hg 11/15/19 25 Blood pressure diastolic 80 mm Hg 025 Heart Rate 95 /min 11/14/2024 Height 60.75 in 11/14/2024 BMI 35.77 kg/m2 11/14/2024 Encounters Encounter Location Date Provider Diagnosis [place] [address] [place] [phone] 11/14/2024 Baldev Otero Well adult exam Z00. 00 Assessments Encounter Date Diagnosis (ICD Code) Assessment Notes Treatment Notes Treatment Clinical Notes Section Notes 11/14/2024 Well adult exam (ICD-10 - Z00.00) Plan Of Treatment Next Appt Details Follow Up: prn, Reason: Progress Notes * TERELL HUTCHINSONDOB: 0 (25 yo F)Acc No.[id number]:11/14/2024 Physical Patient: TERELL MATIAS Provider: Mc Otero M.D. :2000 A ge:24 Y S ex:Female Date:11/14/2024 Address:[address] [place] [address] [facility] Pcp:Mary Jo Cruz Subjective: * Chief Complaints: * 1 . Gen cpx. * HPI: H PI: 24 year old female presents with c/o Patient is here today for?Pt here for [facility] employee physical. * ROS: D ERMATOLOGY: no [...] edema. ? Assessment: * Assessment: 1. W [facility] adult exam - Z00.00 (Primary) Plan: * Treatment: * Procedure Codes: 3 074F SYST BP LT 130 MM HG, 3079F DIAST BP 80-89 MM HG * Follow Up: p rn * Images: Billing Information: * Visit Code: 43373 Preventive Care Est Pt 18-39. * Procedure Codes: 3074F SYST BP LT 130 MM HG. 3079F DIAST BP 80-89 MM HG. * Electronic signature of Nava Otero MD on 05/30/2025 at 01:52 PM EST Sign off status: Pending * Provider: Mc Otero M.D. Date: 0 11/14/2024 Generated for Sis jarquin/Martha/Renarditting on: 1 07/30/2024 01:52 PM EST History and Physical Notes * HPI (History of Present Illness) Category Sub-Category Detail Notes Category Not es HPI Patient is here today for Pt here for [facility] employee physical Examination Category Sub-Category Detail Notes [...]
--- OUTSIDE RECORDS SUMMARY | 2025-01-25 11:15 | XMS_ITS ---
Author Organization [facility] Address [address] [place] [phone] Care Team Providers Care Forming Department Supervisor Name Role Phone Mary Jo Cruz Primary Care Provider Katie Dolan Unavailable [phone] Baldev Otero Unavailable [phone] Allergies Allergen (clinical drug ingredient) Drug/Non Drug [...] 01/25/2025 Encounters Encounter Location Date Provider Diagnosis [facility] [address] [place], [place] [phone] 01/25/2025 Baldev [place] Gastroenteritis K52. 9 Assessments Encounter Date Diagnosis (ICD Code) Assessment Notes Treatment Notes Treatment Clinical Notes Section Notes 01/25/2025 Gastroenteritis (ICD-10 - K52.9) Plan Of Treatment Medication Medication Name Sig Start Date Stop Date Notes Ondansetron HCl 4 MG 1 tablet Orally 3 times a day 025 Next Appt Details Follow Up: prn, Reason: Progress Notes * HUTCHINSON TREELLDOB: 0 (25 yo F)Acc No.[id number]:01/25/2025 Progress Notes Patient: TERELL MATIAS Provider: Mc Otero M.D. :2000 A ge:24 Y S ex:Female Date:01/25/2025 Address:[address] [place], [place] [address] Pcp:Mary Jo Cruz Subjective: * Chief Complaints: [...] Procedure Codes: 3 6416 CAPILLARY BLOOD DRAW, 98112 CBC WITH AUTO DIFF * Follow Up: p rn * Images: Billing Information: * Visit Code: 91893 Office Visit, Est Pt., Level 3. * Procedure Codes: 34433 CAPILLARY BLOOD DRAW. 74422 CBC WITH AUTO DIFF. * Electronic signature of Nava Otero MD on 05/30/2025 at 01:51 PM EST Sign off status: Pending * Provider: Mc Otero M.D. Date: 0 01/25/2025 Generated for Sis jarquin/Martha/Renarditting on: 1 07/30/2024 01:51 PM EST History and Physical Notes * [...]
--- OUTSIDE RECORDS SUMMARY | 2025-05-30 13:52 | XMS_ITS | Patient Health Record ---
Author Organization [facility] Address [address] [place] [phone] Care Team Providers Care Slab Miller Operator Name Role Phone Mary Jo Cruz Primary Care Provider Katie Dolan Unavailable [phone] Marcin Oteroian Unavailable [phone] Allergies Allergen (clinical drug ingredient) Drug/Non Drug [...] - 38 plat 217 100 - 400 H-Quantiferon TB Reviewed date:11/23/2024 11:35:03 AM Interpretation:Normal Performing Lab: Notes/Report: QTB.3 Comment . QuantiFERON-TB Gold Plus is a qualitative indirect test for M tuberculosis infection (including disease) and is intended for use in conjunction with risk assessment, radiography, and other medical and diagnostic evaluations. The QuantiFERON-TB Gold Plus result is determined by subtracting the Nil value from either TB antigen (Ag) value. The Mitogen tube serves as a control for the test. QTB.4 0.02 . IU/mL QTB.5.0 0.03 . IU/mL QTB.6 0.03 . IU/mL QTB.7 >10.00 . IU/mL QTB.8 Negative Negative No response to M tuberculosis antigens detected. Infection with M tuberculosis is unlikely, but high risk individuals should be considered for additional testing (ATS/IDSA/CDC Clinical Practice Guidelines, 2017). The reference range is an Antigen minus Nil result of <0.35 IU/mL. The specimen received for QuantiFERON testing was incubated by the ordering institution. Specific procedures outlined in our Directory of Services and in the package insert for the QuantiFERON Gold (In Tube) test must be followed to enable for proper stimulation of cells for the production of interferon gamma. Chemiluminescence immunoassay methodology Performed at: [facility] [address] [id number] Nursing Director: Sergey Irwin PhD, Phone: [phone] Reason For Referral No Information Medications Medication SIG (Take, Route, Fr equency, Duration) Notes Start Date End Date Status Ondansetron HCl 4 MG 1 tablet Orally 3 times a day As needed 01/25/2025 Active EPINEPHrine 0.3 MG/0.3ML as directed int ramuscularly once 02/04/2022 Active Wegovy 0.25 MG/0.5ML 0.5 mL Subcutaneous once weekly 11/17/2024 Active Nexplanon 68 MG as directed Subcutaneous Active Immunizations Vaccine Route Administration Date Status Comme nts COVID 19 Moderna Unknown 07/17/2020 Administered COVID 19 Moderna Unknown 08/15/2020 Administered Fluzone Quad (6months&older) IM Intramuscular 03/27/2020 Administered Hep A- Pediatric IM Intramuscular 08/14/2017 Administered Hep A- Pediatric IM Intramuscular 03/24/2018 Administered HEPB VACC PED/ADOL DOSE IM Unknown 2000 Administe red HEPB VACC PED/ADOL DOSE IM Unknown 08/23/2001 Administe red IPV Unknown 2000 Administered IPV Unknown 2000 Administered IPV Unknown 12/11/2001 Administered IPV Unknown 08/13/2004 Administered Menactra IM Intramuscular 03/24/2018 Administered MMR Unknown 08/23/2001 Administered MMR Unknown 08/13/2004 Administered ppd SC Subcutaneous 03/24/2018 Administered ppd SC Subcutaneous 04/06/2018 Administered ppd ID Intradermal 03/19/2020 Administered ppd ID Intradermal 03/27/2020 Administered Tetanus Tdap-Adacel (over 7yrs) Unknown 03/05/2012 Administered Varivax Unknown 05/06/2001 Administered Varivax Unknown 03/05/2012 Administered Varivax IM Intramuscular 03/19/2020 Administered Problems Problem Type SNOMED Code ICD Code Onset Dates Problem Status W/U Status Risk Notes Problem Seasonal allergic rhinitis (055030504) Seasonal allergic rhinitis, unspecified trigger (J30.2) Active confirmed Problem Allergy to honey bee venom ([id number] 53942) 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 00 [facility] [address] [place], [place] [phone] 01/25/2025 Baldev [facility] Gastroenteritis K52. 9 [facility] [address] [place], [place] [phone] 11/16/2024 Baldev [facility] Screening for tuberculosis Z11.1 [facility] [address] [facility] [address] [place], [place] [phone] 11/17/2024 Baldev [facility] Assessments Encounter Date Diagnosis (ICD Code) Assessment Notes Treatment Notes Treatment Clinical Notes Section Notes 11/16/2024 Screening for tuberculosis (ICD-10 - Z11.1) 01/25/2025 Gastroenteritis (ICD-10 - K52.9) 11/14/2024 Well adult exam (ICD-10 - Z00.00) Plan Of Treatment No Information Insurance Providers Payer Name Payer Address Payer Phone Subscriber Number Group Number Insured Name Patient Relationship to Insured Coverage Start Date Coverage End Date [facility] [address] [address] [place] [phone] [id number] TERELL HUTCHINSON Self - patient is the insured Medical (General) History Medical History History ICD Code Broken Arm, 2002 Allergic Rhinitis Surgical History Surgery Date(Month/Year)
--- OUTSIDE RECORDS SUMMARY | 2025-05-30 13:52 | XMS_ITS | Clinical Summary ---
[facility] Address [address] [place] [address] Care Team Providers Care Registration Clerk Name Role Phone Provider, No Known Primary Care Provider Unavail able Allergies No known active allergies Medications doxylamine-pyrid oxine (DICLEGIS) 10-10 MG tablet delayed-release EC tablet Take 1 tablet by mouth 3 (Three) Times a Day. Active folic acid (FOLVITE) 400 MCG tablet Take 1 tablet by mouth Daily. Active Ferrous Sulfate 27 MG tablet Take 1 tablet by mouth Daily. 11/26/2022 Active Vit-Fe [id number] (One-A-Day Womens ) 28-0.8 & 223 MG misc 08/26/2020 Active promethazine (PHENERGAN) 08/26/2022 Active Active Problems Problem Noted Date Diagnosed Date 25 weeks gestation of 12/25/2022 Immunizations Immunization Administration Dates Next Due COVID-19 (MODERNA) 1st,2nd,3rd Dose Monovalent 0 08/15/2020,07/17/2020 Social History Tobacco Use Types Packs/Day Years Used Date Smoking Tobacco: Never Smokeless Tobacco: Never Alcohol Use Standard Drinks/Week Comments Not Currently 0 (1 standard drink = 0.6 oz pur e alcohol) Abuse Screen Answer Date Recorded Unsafe at Home or Work/School Not on file Feels Threatened by Someone? Not on file Does Anyone Keep You from Co ntacting Others or Doint Things Outside the Home? Not on file 05/01/2023 Physical Sign of Abuse Present Not on file 1 Housing Stability Answer Date Recorded Current Living Arrangements Not on file 04/19 Potentially Unsafe Housing Conditions Not on tina e 05/01/2023 Family and Community Support Answer Rico e Recorded Help with Day-to-Day Activities Not on file 05/01/2023 Lonely or Isolated Not on file 05/01/2023 Employment Answer Date Recorded Do you want help finding or keeping work or a yessenia b? Not on file 05/01/2023 Disabilities Answer Date Recorded Concentrating, Remembering, or Making Decisions Difficulty Not on file 05/01/2023 Doing Errands Independently Difficulty Not on fi le 05/01/2023 Education Answer Date Recorded Help with school or training? Not on file Preferred Language Not on file 05/01/2023 Comments No Sex and Gender Information Value Date Recorded Sex Assigned at Not on file Legal Sex Female 8:53 AM EDT Gender Identity Not on file Sexual Orientation Not on file Last Filed Vital Signs Vital Sign Reading Time Taken Comments Blood Pressure 130/70 02/10/2023 1:47 PM EDT Pulse - - Temperature - - Respiratory Rate - - Oxygen Saturation - - Inhaled Oxygen Concentration - - Weight 81.2 kg (179 lb) 02/10/2023 1:47 PM EDT Height - - Body Mass Index - - Plan of Treatment Health Maintenance Due Date Last Done Comments Annual Gynecologic Pelvic an d Breast Exam 2000 HPV VACCINES (1 - 3-dose series) 2015 TDAP/TD VACCINES (2 - Td or Tdap) 03/05/2022 03/05/2012 ANNUAL PHYSICAL 12/08/2022 HEPATITIS C SCREENING 12/08/2022 INFLUENZA VACCINE 02/17/2025 Pneumococcal Vaccine 0-49 Aged Out 2000, 2000, 2000 No longer eligible based on patient's age to complete this topic Insurance [id number] S DEL[place] KRAMER[place] [id number] R Care Teams Registration Clerk Relationship Specialty Start Date End Date Provider, [place] [address] PCP - General 12/08/22
[2025-05-30 14:50] LABS: Hematocrit 42.4 % (37.0-47.0); Hemoglobin 14.2 g/dL (12.2-16.2); Immature Granulocytes % 0.1 %; Mean Corpuscular HGB Conc 33.5 g/dL (31.8-35.4); Mean Corpuscular Hemoglobin 30.3 pg (27.0-31.2); Mean Corpuscular Volume 90.6 fl (81-99); Nucleated Red Blood Cells % 0 %; Platelet Count 349 K/mm3 (142-424); Red Blood Count 4.68 M/mm3 (4.20-5.40); Red Cell Distribution Width-SD 42.3 fL; White Blood Count 7.2 K/mm3 (4.8-10.8)
[2025-05-30 15:33] LABS: Activated Partial Thrombo Time 29.1 seconds (22.8-30.6); INR 0.97 (0.9-1.1); Prothrombin Time 10.8 seconds (10.1-12.5)
== END 2025-05-30 23:59 | disposition home or self-care (01) ==
LOC: LAB 13:47
PROVIDERS: PCP Family Medicine; Visit Provider Ophthalmology
DX: H34.8122 Central retinal vein occlusion, left eye, stable (principal)
CPT/HCPCS: 36415; 83090; 85025; 85302; 85305; 85306; 85610; 85730

== ENCOUNTER 2025-06-05 14:28 | Outpatient (CLI) | payer OTHER, SELFPAY ==
--- OUTSIDE RECORDS SUMMARY | 2024-11-14 09:00 | XMS_ITS ---
Author Organization [place] Address [address] [facility] [address] [place] [phone] Care Team Providers Care Radio Frequency Technician Name Role Phone Mary Jo Cruz Primary Care Provider Katie Dolan Unavailable [phone] Baldev Otero Unavailable [phone] Allergies Allergen (clinical drug ingredient) Drug/Non Drug Allergy documented on EMR Reaction Allergy Type Onset Date Status Bee Sting Unknown Allergy Active REASON FOR VISIT gen cpx Medications Medication SIG (Take, Route, Fr equency, Duration) Notes Start Date End Date Status Nexplanon 68 MG as directed Subcutaneous Active EPINEPHrine 0.3 MG/0.3ML as directed int ramuscularly once 02/04/2022 Active Vital Signs Blood pressure systolic 128 mm Hg 11/15/19 25 Blood pressure diastolic 80 mm Hg 025 Heart Rate 95 /min 11/14/2024 Height 60.75 in 11/14/2024 Weight 187.8 lbs 11/14/2024 BMI 35.77 kg/m2 11/14/2024 Encounters Encounter Location Date Provider Diagnosis [place] [address] [place] [phone] 11/14/2024 Baldev Otero Well adult exam Z00. 00 Assessments Encounter Date Diagnosis (ICD Code) Assessment Notes Treatment Notes Treatment Clinical Notes Section Notes 11/14/2024 Well adult exam (ICD-10 - Z00.00) Plan Of Treatment Next Appt Details Follow Up: prn, Reason: Progress Notes * TERELL HUTCHINSONDOB: 0 (25 yo F)Acc No.[id number]:11/14/2024 Physical Patient: TERELL MATIAS Provider: Mc Otero M.D. :2000 A ge:24 Y S ex:Female Date:11/14/2024 Address:[address] [place] [address] [facility] Pcp:Mary Jo Cruz Subjective: * Chief Complaints: * 1 . Gen cpx. * HPI: H PI: 24 year old female presents with c/o Patient is here today for?Pt here for [employer] employee physical. * ROS: D ERMATOLOGY: no R tyler. n o H byron. G ASTROENTEROLOGY: no N ausea. n o V omiting. U ROLOGY: no D ifficulty urinating. n o B lood in urine. * Medical History: B alison Foley, 2002, Allergic Rhinitis. * Surgical History: D enies Past Surgical History. * Hospitalization/Major Diagno stic Procedure: D enies Past Hospitalization. * Family History: F ather: alive. M other: alive. * Social History: C URRENT TOBACCO USE S moking Status: P atient does NOT smoke. C affeine: yes, frequency:. Home smoke detector use: yes. Alcohol: No. * Medications: T aking Nexplanon 68 MG Implant as directed Subcutaneous , Taking EPINEPHrine 0.3 MG/0.3ML Solution Auto-injector as directed intramuscularly once , Discontinued Aviane 0.1-20 MG-MCG Tablet 1 tab(s) orally once a day , Discontinued Loratadine 10 MG Tablet 1 tab(s) orally once a day , Discontinued Montelukast Sodium 10 MG Tablet 1 tab(s) orally once a day , Discontinued Fluticasone Propionate 50 MCG/ACT Suspension 1 spray(s) in each nostril once a day , Discontinued Cefuroxime Axetil 250 MG Tablet 1 tab(s) orally every 12 hours , Medication List reviewed and reconciled with the patient * Allergies: B ee Sting. Objective: * Vitals: W t: 187.8, Temp: 98.0, BP: 128/80, HR: 95, Nurse: danette, Ht: 60.75, BMI:35.77. * Examination: G eneral Examination: General Appearance: N AD. H EENT: u nremarkable.?Oral cavity: n o lesions, mucosa moist and WNL, no erythema. N romelia: s upple, no lymphadenopathy. C hest: n ormal shape and expansion. H eart: R SR. L ungs: c lear to auscultation. N eurologic Exam: I ntact, gait normal. S kin: n ormal, no rash.?Peripheral pulses: n ormal (2+) bilaterally. E xtremities: n o leg edema. ? Assessment: * Assessment: 1. W [facility] adult exam - Z00.00 (Primary) Plan: * Treatment: * Procedure Codes: 3 074F SYST BP LT 130 MM HG, 3079F DIAST BP 80-89 MM HG * Follow Up: p rn * Images: Billing Information: * Visit Code: 65916 Preventive Care Est Pt 18-39. * Procedure Codes: 3074F SYST BP LT 130 MM HG. 3079F DIAST BP 80-89 MM HG. * Electronic signature of Nava Otero MD on 06/05/2025 at 09:06 PM EST Sign off status: Pending * Provider: Mc Otero M.D. Date: 0 11/14/2024 Generated for Sis jarquin/Martha/Renarditting on: 1 08/05/2024 09:06 PM EST History and Physical Notes * HPI (History of Present Illness) Category Sub-Category Detail Notes Category Not es HPI Patient is here today for Pt here for [employer] employee physical Examination Category Sub-Category Detail Notes Category Not es General Examination HEENT: unremarkable Heart: RSR Lungs: clear to auscultatio n Extremities: no leg edema General Appearance: NAD Skin: normal, no rash Neurologic Exam: Intact, gait normal Neck: supple, no lymphaden opathy Oral cavity: no lesions, mucosa m oist and WNL, no erythema Peripheral pulses: normal (2+) bilatera lly Chest: normal shape and exp ansion
--- OUTSIDE RECORDS SUMMARY | 2025-01-25 11:15 | XMS_ITS ---
[facility] Address [address] [place] [phone] Care Team Providers Care Sql Database Administrator Name Role Phone Mary Jo Cruz Primary Care Provider Katie Dolan Unavailable [phone] Baldev Otero Unavailable [phone] Allergies Allergen (clinical drug ingredient) Drug/Non Drug Allergy documented on EMR Reaction Allergy Type Onset Date Status Bee Sting Unknown Allergy Active Results Component Value Reference Range Notes CBC Fingerstick (in house) Reviewed date:01/26/2025 09:22:59 AM Interpretation: Performing Lab: Notes/Report: wbc 14.1 3.5 - 10 lym 37.8% 15 - 50 mid 7.4% 2 - 15 gran 54.8% 35 - 80 rbc 5.29 3.5 - 5.5 hgb 16.2 11.5 - 16.5 hct 47.7 35 - 55 mcv 90.1 75 - 100 mch 30.7 25 - 35 mchc 34.0 31 - 38 plat 217 100 - 400 REASON FOR VISIT stomach virus Medications Medication SIG (Take, Route, Fr equency, Duration) Notes Start Date End Date Status Ondansetron HCl 4 MG 1 tablet Orally 3 times a day As needed 01/25/2025 Active EPINEPHrine 0.3 MG/0.3ML as directed int ramuscularly once 02/04/2022 Active Wegovy 0.25 MG/0.5ML 0.5 mL Subcutaneous once weekly 11/17/2024 Active Nexplanon 68 MG as directed Subcutaneous Active Vital Signs Weight 189 lbs 01/25/2025 Blood pressure systolic 130 mm Hg 01/26/20 25 Blood pressure diastolic 80 mm Hg 025 Heart Rate 102 /min 01/25/2025 Height 60.75 in 01/25/2025 BMI 36 kg/m2 01/25/2025 Encounters Encounter Location Date Provider Diagnosis [facility] [address] [place], [place] [phone] 01/25/2025 Baldev [place] Gastroenteritis K52. 9 Assessments Encounter Date Diagnosis (ICD Code) Assessment Notes Treatment Notes Treatment Clinical Notes Section Notes 01/25/2025 Gastroenteritis (ICD-10 - K52.9) Plan Of Treatment Medication Medication Name Sig Start Date Stop Date Notes Ondansetron HCl 4 MG 1 tablet Orally 3 times a day 025 Next Appt Details Follow Up: prn, Reason: Progress Notes * HUTCHINSON TERELLDOB: 0 (25 yo F)Acc No.[id number]:01/25/2025 Progress Notes Patient: TERELL MATIAS Provider: Mc Otero M.D. :2000 A ge:24 Y S ex:Female Date:01/25/2025 Address:[address] [place], [place] [address] Pcp:Mary Jo Cruz Subjective: * Chief Complaints: * 1 . Stomach virus. * HPI: G astroenterology: 24 year old female presents with c/o Nausea. c/o Vomiting?Pt complains of vomiting and diarrhea t hat started Thursday morning. Pt states she ate shrimp at a restaurant Thursday evening and thinks she may have food poisoning as her has had the same symptoms. * ROS: D ERMATOLOGY: no R tyler. n o H byron. G ASTROENTEROLOGY: no N ausea. n o V omiting. U ROLOGY: no D ifficulty urinating. n o B lood in urine. * Medical History: B alison Arm, 2002, Allergic Rhinitis. * Surgical History: D enies Past Surgical History. * Hospitalization/Major Diagno stic Procedure: D enies Past Hospitalization. * Family History: F ather: alive. M other: alive. * Social History: C URRENT TOBACCO USE: No . C affeine: yes. Home smoke detector use: yes. Alcohol: No. * Medications: T aking Nexplanon 68 MG Implant as directed Subcutaneous , Taking EPINEPHrine 0.3 MG/0.3ML Solution Auto-injector as directed intramuscularly once , Taking Wegovy 0.25 MG/0.5ML Solution Auto-injector 0.5 mL Subcutaneous once weekly , Medication List reviewed and reconciled with the patient * Allergies: B ee Sting. Objective: * Vitals: W t: 189, Temp: 98.0, BP: 130/80, HR: 102, Nurse: kk, Ht: 60.75, BMI:36. * Examination: G astroenterology: General Appearance: p leasant, NAD. O ral cavity: n ormal. S clera: a nicteric. H eart sounds: r egular, normal S1 S2. L ungs: c lear, no rales or wheezes. Assessment: * Assessment: 1. G astroenteritis - K52.9 (Primary) Plan: * Treatment: Value Reference Range w bc 14.1 3.5 - 10 * l ym 37.8% 15 - 50 * m id 7.4% 2 - 15 * g ran 54.8% 35 - 80 * r bc 5.29 3.5 - 5.5 * h gb 16.2 11.5 - 16.5 * h ct 47.7 35 - 55 * m cv 90.1 75 - 100 * m ch 30.7 25 - 35 * m chc 34.0 31 - 38 * p lat 217 100 - 400 * Tootie Marquis 01/25/2025 04:19:3 0 PM EDT > Provider reviewed results while patient in office. * Procedure Codes: 3 6416 CAPILLARY BLOOD DRAW, 67855 CBC WITH AUTO DIFF * Follow Up: p rn * Images: Billing Information: * Visit Code: 78402 Office Visit, Est Pt., Level 3. * Procedure Codes: 56693 CAPILLARY BLOOD DRAW. 14186 CBC WITH AUTO DIFF. * Electronic signature of Nava Otero MD on 06/05/2025 at 09:06 PM EST Sign off status: Pending * Provider: Mc Otero M.D. Date: 0 01/25/2025 Generated for Sis jarquin/Martha/Renarditting on: 1 08/05/2024 09:06 PM EST History and Physical Notes * HPI (History of Present Illness) Category Sub-Category Detail Notes Category Not es Gastroenterology Vomiting Pt complains of vomiting and diarrhea that started Thursday morning. Pt states she ate shrimp at a restaurant Thursday evening and thinks she may have food poisoning as her has had the same symptoms Nausea Examination Category Sub-Category Detail Notes Category Not es Gastroenterology Oral cavity: normal Sclera: anicteric Heart sounds: regular, normal S1 S 2 Lungs: clear, no rales or w heezes General Appearance: pleasant, NAD
--- OUTSIDE RECORDS SUMMARY | 2025-06-05 21:06 | XMS_ITS | Patient Health Record ---
[facility] [address] [place] [id number] Care Team Providers Care Sawing And Assembly Supervisor Name Role Phone Mary Jo Cruz Primary Care Provider Katie Dolan Unavailable [phone] Marcin Oteroian Unavailable [phone] Allergies Allergen (clinical drug ingredient) Drug/Non Drug Allergy documented on EMR Reaction Allergy Type Onset Date Status Bee Sting Unknown Allergy Active Results Component Value Reference Range Notes H-Quantiferon TB Reviewed date:11/23/2024 11:35:03 AM Interpretation:Normal [...] interferon gamma. Chemiluminescence immunoassay methodology Performed at: [facility] [id number] Hospital Receptionist: Sergey Irwin PhD, Phone: [phone] CBC Fingerstick (in house) Reviewed date:01/26/2025 09:22:59 [...] - 38 plat 217 100 - 400 Reason For Referral No Information Medications Medication [...] Vaccine Route Administration Date Status Comme nts Varivax IM Intramuscular 03/19/2020 Administered Varivax Unknown 05/06/2001 Administered Varivax Unknown 03/05/2012 Administered Tetanus Tdap-Adacel (over 7yrs) Unknown 03/05/2012 Administered ppd SC Subcutaneous 03/24/2018 Administered ppd SC Subcutaneous 04/06/2018 Administered ppd ID Intradermal 03/19/2020 Administered ppd ID Intradermal 03/27/2020 Administered MMR Unknown 08/23/2001 Administered MMR Unknown 08/13/2004 Administered Menactra IM Intramuscular 03/24/2018 Administered IPV Unknown 2000 Administered IPV Unknown 2000 Administered IPV Unknown 12/11/2001 Administered IPV Unknown 08/13/2004 Administered HEPB VACC PED/ADOL DOSE IM Unknown 2000 Administe red HEPB VACC PED/ADOL DOSE IM Unknown 08/23/2001 Administe red Hep A- Pediatric IM Intramuscular 08/14/2017 Administered Hep A- Pediatric IM Intramuscular 03/24/2018 Administered Fluzone Quad (6months&older) IM Intramuscular 03/27/2020 Administered COVID 19 Moderna Unknown 07/17/2020 Administered COVID 19 Moderna Unknown 08/15/2020 Administered Problems Problem Type SNOMED Code ICD Code Onset Dates Problem Status W/U Status Risk Notes Problem Seasonal allergic rhinitis (808550167) Seasonal allergic rhinitis, unspecified trigger (J30.2) Active confirmed Problem Allergy to honey bee venom ([id number] 28174) 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 00 [facility] [address] [place], [place] [id number] 01/25/2025 Baldev Bejou Gastroenteritis K52. 9 [facility] [address] [place], [place] [id number] 11/16/2024 Baldev Bejou Screening for tuberculosis Z11.1 [facility] [address] [facility] [address] [place], [place] [id number] 11/17/2024 Baldev Bejou Assessments Encounter Date Diagnosis (ICD Code) Assessment Notes Treatment Notes Treatment Clinical Notes Section Notes 11/14/2024 Well adult exam (ICD-10 - Z00.00) 11/16/2024 Screening for tuberculosis (ICD-10 - Z11.1) 01/25/2025 Gastroenteritis (ICD-10 - K52.9) Plan Of Treatment No Information Insurance Providers Payer Name Payer Address Payer Phone Subscriber Number Group Number Insured Name Patient Relationship to Insured Coverage Start Date Coverage End Date [facility] [address] [address] [place] [phone] [id number] TERELL HUTCHINSON Self - patient is the insured Medical (General) History Medical History History ICD Code Broken Arm, 2002 Allergic Rhinitis Surgical History Surgery Date(Month/Year)
--- OUTSIDE RECORDS SUMMARY | 2025-06-05 21:07 | XMS_ITS | Clinical Summary ---
[facility] [address] [place] [address] Care Team Providers Care Payroll Supervisor Name Role Phone Provider, No Known Primary [...] tablet by mouth Daily. 11/26/2022 Active Vit-Fe [id number]-DJ-[id number] (One-A-Day Womens ) 28-0.8 & 223 MG [...] 04/19 Potentially Unsafe Housing Conditions Not on tian e 05/01/2023 Family and Community Support Answer [...] topic Insurance Magi[employer] S [place]INE [place] [id number] R Care Teams Payroll Supervisor Relationship Specialty Start Date End Date Provider, [place] [address] PCP - General 12/08/22
== END 2025-06-05 23:59 | disposition home or self-care (01) ==
LOC: LAB 14:28
PROVIDERS: PCP Family Medicine; Visit Provider Ophthalmology
DX: H34.8122 Central retinal vein occlusion, left eye, stable (principal)
CPT/HCPCS: 85220